=== PATIENT | male | born 1940 | race Caucasian/White ===

== ENCOUNTER → 2016-12-19 | Outpatient (CLI) | payer OTHER, MEDICARE ==
[~2016-12-19] MED LIST: IOPAMIDOL (ISOVUE-M 300) 15 ML VIAL IV ONE; LIDOCAINE 1% 30 ML SDV ONE; NA BICARBONATE 50 MEQ/50 ML VIAL ONE
--- NOTE | 2016-12-19 15:09 | CT ---
CT myelogram, cervical, thoracic, lumbar spine Indication: Back pain. The patient has not had prior surgery. Patient has a Zenith aortic stent graft , causing significant artifact on MRI. Comparison: CT myelogram of the lumbar spine of July 11, 2013. Technique: 1.25-mm thin axial images were performed from the skull base through the pubic symphysis w ithout intravenous contrast. Intrathecal contrast was administered. Please see separate report for th at. Low-dose technique was utilized. Findings: Cervical myelogram: Skull base is within normal limits. There is moderate degenerative disk height l oss throughout the cervical spine, with [id number] phenomenon at C3-C4 and C4-C5. There is moderate sclerosis at C1-C2. No compression deformity. Prevertebral soft tissues are within normal limits. C1-C2: No canal compromise. C2-C3: There is loss of disk space, likely from either old trauma or a congenital fusion. Alignment i s normal. No canal or foraminal stenosis. C3-C4: There is moderate canal stenosis due to posterior disk bulge. There is moderate to severe fora peggy stenosis due to osteophyte formation. The normal AP diameter of the cervical cord is 7.6 mm. At this level, AP diameter of the cord is 6.3 mm. There is effacement of the ventral thecal space. C4-C5: There is a moderate central disk bulge with osteophyte formation. There is a large posterior o steophyte coming from the C3 facet. A combination of the process contributes to severe canal stenosis . AP diameter of the cord is 5.5 mm. There is near complete absence of CSF space around the cord. The re is severe bilateral foraminal stenosis. C5-C6: Moderate bilateral ligamentum flavum hypertrophy contributes to mild posterolateral canal comp romise. Anteriorly, there is no significant disk bulge. There is mild left-sided foraminal stenosis. [C6-C7]: There is a 4 mm anterolisthesis of [C5 on C6]. There is a central broad-based disk bulge. Th ere is moderate posterior ligamentum flavum flavum hypertrophy at the posterolateral right aspect of [C5]. Overall process contributes to mild canal stenosis, and mild foraminal stenosis. C7-T1: Normal without significant canal or foraminal stenosis. Thoracic myelogram: There is exuberant degenerative disease throughout the thoracic spine. No focal c ompression deformity. Cord is normal in caliber. Canal is normal in size congenitally. T1-T2: Normal without canal or foraminal stenosis. T2-T3: Normal without canal or foraminal stenosis. T3-T4: There is minimal central disk bulge. No canal or foraminal stenosis. T4-T5: No canal or foraminal stenosis. T5-T6: No canal or foraminal stenosis. T6-T7: No canal or foraminal stenosis. T7-T8: No canal or foraminal stenosis. T8-T9: No canal or foraminal stenosis. T9-T10: No canal or foraminal stenosis. T10-T11: There is minimal central disk bulge without significant canal or foraminal stenosis. Overall canal compromise is very mild. T11-T12: Again, there is mild central disk bulge with mild canal stenosis. No foraminal stenosis. T12-L1: There is moderate bilateral facet arthropathy with mild canal compromise at the posterolatera l aspect. Lumbar myelogram: The conus terminates at L1. The normal lumbar AP diameter of the canal, for example at the midbody of L1, is 18 mm. There is moderate degenerative disk disease throughout the lumbar sp ine. No compression deformity. L1-T2: There is a moderate central posterior disk bulge. Combined with moderate bilateral facet disea se, there is mild canal compromise. There is moderate bilateral foraminal stenosis. L2-L3: There is mild canal stenosis. Patient has levoscoliosis of the lumbar spine. There is a small central disk bulge. There is moderate bilateral foraminal stenosis. L3-L4: Again, there is near complete loss of disk height. There is moderate canal stenosis, where a l ot of the lower lumbar contrast is holding up. Minimal AP diameter of the canal is 13 mm. There is an exuberant amount of bilateral facet arthropathy, and moderate to severe bilateral foraminal stenosis . L4-L5: There is moderate canal stenosis, to a lesser extent compared to the level above. Most of this is caused by exuberant ligamentum flavum hypertrophy. There is a small posterior central disk bulge. L5-S1: No significant canal stenosis. There is significant bilateral facet arthropathy. The patient's infrarenal bifurcated aortic stent graft device is noted. It is a [employer] suprarena l fixation device. The eccentrically located left saccular aneurysm sac currently measures 3.4 cm in AP diameter x 2.4 cm in transverse diameter. The retroperitoneal soft tissues are otherwise symmetric. Impression: 1. Overall, despite of the degree of degenerative disk height loss throughout the cervical spine and lumbar spine, the overall respective degree of central canal stenosis is not as bad as I thought it w ould be. 2. Worst level of canal stenosis in the cervical spine is at C4-C5, due to disk bulge and facet disea se. 3. Worst level of canal stenosis in the lumbar spine is at L3-L4, due to facet disease and a small ce ntral disk bulge. 4. Scoliosis of the lumbar spine. 5. No significant disease in the thoracic spine.
--- NOTE | 2016-12-19 15:47 | DX ---
Lumbar puncture Intrathecal contrast injection Indication: CT myelogram requested. Back pain. Informed consent: Obtained from the patient. Risks and benefits were discussed. Crosscutting Measure: Patient's current list of medications including all known prescriptions, over- the-counters, herbals, and vitamin/mineral/dietary supplements are reviewed. Medications' name, dosa ge, frequency, and route of administration are confirmed. The patient is a non-smoker. Prophylactic Antibiotic: Cefazolin was not ordered and administered for antimicrobial prophylaxis be cause it was not medically necessary. VTE Prophylaxis: There is not an order for VTE prophylaxis to be given within 24 hours of the proced ure end time. VTE prophylaxis was not given because it was not medically necessary. Technique: Patient was placed in prone position. A "timeout" procedure was performed to identify th e correct patient and the correct procedure. 1% Xylocaine was used for local anesthetic. All eleme nts of maximal sterile barrier technique including cap, mask, sterile gown, sterile gloves, large jose alberto rile sheet, hand hygiene, and 2% chlorhexidine for cutaneous antisepsis, followed. L2-L3 interlaminar space was chosen. 22-gauge spinal needle was inserted into the space via left-side d approach. CSF was obtained. 15 mL of Isovue-M 200, was injected intrathecally. Fluoroscopic confirm ation was obtained with the injection. Patient was then tilted in various ways to make sure that the contrast goes to the cervical spine lev el. Fluoroscopy: 1.6 minutes, 13 images Impression: 1. Intrathecal contrast injection performed at L2-L3 on the left side. 2. 15 mL of Isovue-M 200 injected intrathecally, and subsequently tilted to cervical spine before anoop ng transferred to CT scan.
== END ==
LOC: FIMAGING 07:32
PROVIDERS: ATTEND Neurological Surgery
PROC: 3E0S3KZ Introduction of Other Diagnostic Substance into Epidural Space, Percutaneous Approach (ICD-10-PCS; principal; 2016-12-19)
DX: M48.02 Spinal stenosis, cervical region (principal); M48.06 Spinal stenosis, lumbar region; M41.20 Other idiopathic scoliosis, site unspecified; M41.86 Other forms of scoliosis, lumbar region; Z01.812 Encounter for preprocedural laboratory examination
CPT/HCPCS: 62284; 72126; 72129; 72132; 72270; Q9967

== ENCOUNTER 2017-02-09 07:25 | Observation (INO) | payer OTHER, MEDICARE ==
[~2017-02-09 07:25] MED LIST changes: -IOPAMIDOL (ISOVUE-M 300) 15 ML VIAL IV ONE; -LIDOCAINE 1% 30 ML SDV ONE; -NA BICARBONATE 50 MEQ/50 ML VIAL ONE; +ceFAZolin 2 GM/DEXTROSE 100 ML IV ONE
[2017-02-09] MEDS ORDERED: SKIN ADHESIVE (DERMABOND) 1 EACH TP ONE (08:04)
[2017-02-09] MEDS ORDERED: THROMBIN (BOVINE) 20,000 UNIT VIAL TP ONE (08:04)
[2017-02-09] MEDS ORDERED: SURGIFLO MATRIX KIT WITH THROMBIN TP ONE (08:04)
[2017-02-09] MEDS ORDERED: BACITRACIN 50,000 UNITS/10 ML SYR IRR ONE (08:05)
[2017-02-09] MEDS ORDERED: LR 1,000 ML IV ONE (08:07)
[2017-02-09] MEDS ORDERED: LIDOCAINE 1% 5 ML SDV ID PRN (08:07)
[2017-02-09] MEDS ORDERED: PROPOFOL/EMULSION 500 MG/50 ML BOTTLE IV ONE (08:23)
[2017-02-09] MEDS ORDERED: fentaNYL 100 MCG/2 ML INJ ONE ×2 (08:23→11:30)
[2017-02-09] MEDS ORDERED: HYDROCORTISONE 100 MG/2 ML VIAL IVP ONE ×2 (09:00)
[2017-02-09] MEDS ORDERED: FAMOTIDINE 20 MG/NACL 50 ML IV ONE (09:30)
[2017-02-09] MEDS ORDERED: MIDAZOLAM 2 MG/2 ML VIAL ONE (09:32)
[2017-02-09] MEDS ORDERED: BUPIVACAINE 0.5% 30 ML SDV ONE (09:43)
[2017-02-09] MEDS ORDERED: DIAZEPAM 10 MG/2 ML SYR IVP PRN (09:48)
[2017-02-09] MEDS ORDERED: DIAZEPAM 5 MG TAB PO PRN (09:48)
[2017-02-09] MEDS ORDERED: POLYETHYLENE GLYCOL 3350 17 GM PKT PO PRN (09:48)
[2017-02-09] MEDS ORDERED: ONDANSETRON DISINTEGRATING 4 MG TAB PO PRN (09:48)
[2017-02-09] MEDS ORDERED: ACETAMINOPHEN 325 MG TAB PO PRN (09:48)
[2017-02-09] MEDS ORDERED: diphenhydrAMINE 25 MG CAP PO PRN (09:48)
[2017-02-09] MEDS ORDERED: MAGNESIUM HYDROXIDE 30 ML UDCUP PO PRN (09:48)
[2017-02-09] MEDS ORDERED: BISACODYL 10 MG SUPP PR PRN (09:48)
[2017-02-09] MEDS ORDERED: ONDANSETRON 4 MG/2 ML VIAL IVP PRN (09:48)
[2017-02-09] MEDS ORDERED: LACTULOSE 20 GM/30 ML UDCUP PO PRN (09:48)
[2017-02-09] MEDS ORDERED: ALBUMIN 5% 250 ML BOTTLE IV ONE (09:57)
[2017-02-09] MEDS ORDERED: NS W/ 20 KCl/L 1,000 ML IV SCH (10:00)
[2017-02-09] MEDS ORDERED: SUGAMMADEX SODIUM 200 MG/2 ML VIAL IVP ONE (10:10)
[2017-02-09] MEDS ORDERED: PHENYLEPHRINE HCL 100 MCG/ML SYR ONE (10:10)
[2017-02-09] MEDS ORDERED: ROCURONIUM 50 MG/5 ML VIAL ONE (10:10)
[2017-02-09] MEDS ORDERED: ONDANSETRON 4 MG/2 ML VIAL ONE (10:10)
[2017-02-09] MEDS ORDERED: epHEDrine SULFATE 10 MG/ML SYR ONE (10:42)
--- NOTE | 2017-02-09 11:13 | POSTOPPROG ---
Post Op Note Date of Operation: 02/09/17 Surgeon: iWli Banuelos Mine Surveyor: FLORECITA Aburto PAC Anesthesia: GET(General Endotracheal) Pre-op Diagnosis: Cervical stenosis Post-op Diagnosis: cervical stenosis Indication: cervical stenosis Procedure: ACDF C4/5 Inf/Abcess present in the surg proc area at time of surgery?: No EBL: Minimal Drains: Toño MINOR Addendum - Addendum .: S: Denies pain. O: NAD, AOx3, CHAUDHARY x4 5/5 and equal BUE and BLE. Dressing C/I/D. A/P: 77 y/o male s/p ACDF C4/5 Post-op Xrays pending [facility] pain management Neuro check q4 Hours PT/OT Advance diet as tolerated JPx1 DVT prophylaxis: TEDs, STDs, lovenox ok post op day 3 Call NS with any changes in neuro or motor exam
[2017-02-09] MEDS: oxyCODONE IR 5 MG TAB PO PRN ×3 (13:02→21:53)
--- NOTE | 2017-02-09 13:08 | GOP ---
[f rep st] OPERATIVE REPORT DATE OF OPERATION: 02/09/2017 SURGEON: Wili Banuelos MD [employer] WARM UP: MINOR Ricks ANESTHESIA: General. PREOPERATIVE DIAGNOSIS: 1. Cervical spondylosis with history of rheumatoid arthritis. 2. Cervical stenosis with myelopathy, C4-C5. 3. Treatment refractory to nonoperative intervention. POSTOPERATIVE DIAGNOSIS: 1. Cervical spondylosis with history of rheumatoid arthritis. 2. Cervical stenosis with myelopathy, C4-C5. 3. Treatment refractory to nonoperative intervention. PROCEDURE PERFORMED: 1. Anterior arthrodesis with approach at C4-C5. 2. C4-C5 diskectomy with bilateral foraminotomies, osteophytectomy and interbody fusion using a 7 x 14 x 11 mm titanium coated PEEK cage with morselized autograft and allograft. 3. Anterior cervical fusion C4-C5 with a 17 mm Medtronic Zevo plate. 4. Use of intraoperative fluoroscopy, less than 1 hour physician time. 5. Use of neuro monitoring. 6. Use of operating microscope. 7. Use of intraoperative fluoroscopy, less than1 hour physician time. FINDINGS: SPECIMENS: None. ESTIMATED BLOOD LOSS: 10 mL. INDICATIONS: The patient is a 77-year-old gentleman, unfortunately suffering from upper extremity r adiculopathy. He has some signs and symptoms concerning for some myelopathy. Evidence of severe sp ondylosis throughout his cervical spine consistent with his rheumatoid arthritis and steroid use. H e had severe spinal stenosis C4-C5. After discussion of the risks, benefits, and treatment alternat ita, we decided to proceed forward with surgery as described above. We opted to leave the other le vels of the patient's neck secondary to the fact that he uses steroids and we did not want to decrea se his risk of success and fusion. DESCRIPTION OF PROCEDURE: Patient was brought to the operating theater and underwent general anesth esia without difficulty. Venodynes and TOÑO hose placed. His head was maintained supine on the oper ating table in slight extension. Using lateral fluoroscopy and spinal needle, we then picked our en try point at the C4-C5 level. This was marked as a transverse incision on the right side of the nec k. This area was then prepped and draped in the usual sterile surgical fashion. A time-out was com pleted per protocol. The patient received antibiotics within 1 hour of incision. The incision was taken initially with a scalpel blade and then using the monopolar, taken down throu gh subcutaneous tissues to the level of the platysma. The platysma was in the cranial an d the caudal directions. A Weitlaner placed to maintain our exposure. We opened the fibers of the platysma and using blunt and sharp dissection we traveled in a plane medial to the carotid sheath an d lateral to esophagus and trachea to reach the prevertebral fascia. We placed a bayonetted needle. The disk space of C4-C5 would have very large anterior osteophyte. We confirmed the anatomy of th e patient's lateral x-ray with a CT scan, given that he had auto fusion of C2-C3 and C5-C6. At this point, we confirmed the level and we elevated the longus coli muscle from the anterior vertebral chino dies of C4 and C5. Some anterior osteophytes were removed using a Le[place]ell rongeur. Deep retractors were placed to maintain our exposure and the microscope brought into field to assist with microscop ic dissection, maintain illumination and magnification. We then used a combination of the bur tip o n the drill, Kerrison punches, and angled curettes. We completed a C4-C5 diskectomy with bilateral foraminotomies and osteophytectomies. We prepared the cartilaginous endplates and measured interbod y space. We then placed a 7 x 14 x 11 mm titanium coated PEEK cage with morselized autograft and al lograft into the C4-C5 disk space. We removed the [place] pins from along the anterior aspect and se cured a 17 mm Medtronic Zevo plate at vertebral bodies of C4 and C5. AP and lateral x-rays demonstr ated good placement of the hardware. We then obtained hemostasis with the bipolar. The wound was i rrigated copiously with bacitracin irrigation. The drain was left in subfascial space. The wound w as then closed in multiple layers using Vicryl sutures for deep layers and Dermabond for the skin. The patient's wounds were dressed sterilely. He was then awakened, extubated and taken to recovery room in stable condition. There were no complications and no noted changes on neuromonitoring throughout the procedure. COMPLICATIONS: None. COMPLICATION: None. /[id number]/MODL
[2017-02-09] MEDS: HYDROCORTISONE 100 MG/2 ML VIAL IVP SCH ×2 (14:02→21:13)
[2017-02-09 20:22] VITALS: RESP 16
[2017-02-09] MEDS: SENNOSIDES/DOCUSATE SODIUM TAB PO SCH (20:51)
[2017-02-09] MEDS ORDERED: GABAPENTIN 100 MG CAP PO SCH (21:00)
[2017-02-09] MEDS ORDERED: LEFLUNOMIDE 10 MG TAB PO SCH (21:00)
[2017-02-09] MEDS ORDERED: FAMOTIDINE 20 MG/NACL 50 ML IV SCH (21:00)
[2017-02-10] MEDS: HYDROCORTISONE 100 MG/2 ML VIAL IVP SCH (06:03)
[2017-02-10 07:25] VITALS: PULSE 60
--- NOTE | 2017-02-10 08:00 | NEUSURGPN ---
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 States swallowing ok. Pain well managed. Objective: AAOx3 NAD VSS MAEx4 Motor 5/5 BUE for delt/tri/bi/handgrips Incision cdi +LT JPx1 Urinary Catheter in Place: No - Physician Discussed Patient with : [facility] Physical Exam - Vitals, I&O, Labs I and O 02/09/17 02/10/17 02/11/17 05:59 05:59 05:59 Intake Total 1350 Output Total 720 Balance 630 Weight 65.771 kg Intake: Oral (ml) 650 IV Intake (ml) 700 Output: Urine (ml) 700 Toilet 400 Urinal 300 Estimated Blood Loss (ml) 10 Wound Drainage (ml) 10 #1 Anterior Toño Garsia 10 Other: Number of Voids Toilet 2 Vital Signs Temp Pulse Resp BP Pulse Ox 36.6 C 60 16 173/81 H 98 02/10/17 07:24 02/10/17 07:24 02/10/17 07:24 02/10/17 07:24 02/10/17 07:24 ICD10 Worksheet Patient Problems: Problems Problem Status Onset Degenerative cervical disc Acute - ICD10 Problem Qualifiers (1) Degenerative cervical disc
[2017-02-10] MEDS: SENNOSIDES/DOCUSATE SODIUM TAB PO SCH (08:35)
[2017-02-10] MEDS ORDERED: NON-FORMULARY NEW DRUG (Simvastatin [Zocor] 40 MG) PO SCH (09:00)
[2017-02-10] MEDS ORDERED: predniSONE 1 MG TAB PO SCH (09:00)
[2017-02-10] MEDS ORDERED: FAMOTIDINE 20 MG TAB PO SCH (09:00)
[2017-02-10] MEDS ORDERED: VERAPAMIL ER 120 MG TAB PO SCH (09:00)
[2017-02-10] MEDS ORDERED: ATORVASTATIN CALCIUM 20 MG TAB PO SCH ×2 (09:00→21:00)
[2017-02-10] MEDS ORDERED: NON-FORMULARY NEW DRUG (Verapamil Hcl [Verapamil Sr] 120 MG) PO SCH (09:00)
[2017-02-10 11:45] VITALS: BP 147/88; TEMP 97.5; O2SAT 93
[2017-02-10] MEDS: oxyCODONE IR 5 MG TAB PO PRN (13:55)
== END 2017-02-10 14:31 | disposition home or self-care (01) ==
LOC: F3N 07:25
PROVIDERS: ADMIT Neurological Surgery; ATTEND Neurological Surgery
PROC: 0RT30ZZ Resection of Cervical Vertebral Disc, Open Approach (ICD-10-PCS; principal; 2017-02-09 09:15)
PROC: 4A10X4G Monitoring of Central Nervous Electrical Activity, Intraoperative, External Approach (ICD-10-PCS; principal; 2017-02-09 09:15)
PROC: 0RG10A0 Fusion of Cervical Vertebral Joint with Interbody Fusion Device, Anterior Approach, Anterior Column, Open Approach (ICD-10-PCS; principal; 2017-02-09 09:15)
PROC: 01N10ZZ Release Cervical Nerve, Open Approach (ICD-10-PCS; principal; 2017-02-09 09:15)
DX: M47.12 Other spondylosis with myelopathy, cervical region (principal); M48.02 Spinal stenosis, cervical region; M48.06 Spinal stenosis, lumbar region; M06.9 Rheumatoid arthritis, unspecified; Z79.52 Long term (current) use of systemic steroids; I48.91 Unspecified atrial fibrillation
CPT/HCPCS: 22551; 22853; 72040; 76001; 97161; 97166; C1713; G8978; G8979; G8980; G8987; G8988; G8989; J0690; J2250; J2370; J2405; J2704; J3010; P9041

== ENCOUNTER → 2018-02-19 | Outpatient (CLI) | payer OTHER, MEDICARE | LOC: BMCIMAGING 14:52 | PROVIDERS: ATTEND Internal Medicine Rheumatology | DX: M50.31 Other cervical disc degeneration, high cervical region (principal); Z98.1 Arthrodesis status ==

== ENCOUNTER → 2018-09-04 | Outpatient (CLI) | payer OTHER, MEDICARE | LOC: BMCIMAGING 14:57 | PROVIDERS: ATTEND Internal Medicine Rheumatology | DX: R07.9 Chest pain, unspecified (principal) ==

== ENCOUNTER → 2018-12-04 | Outpatient (CLI) | payer OTHER, MEDICARE | LOC: BMCIMAGING 12:38 | PROVIDERS: ATTEND Internal Medicine Rheumatology | DX: M05.79 Rheumatoid arthritis with rheumatoid factor of multiple sites without organ or systems involvement (principal) ==

== ENCOUNTER → 2019-05-20 | Outpatient (CLI) | payer OTHER, MEDICARE | LOC: BMCIMAGING 14:40 ==